=== PATIENT | male | born 1985 | race Caucasian/White ===

== ENCOUNTER → 2019-03-06 | Outpatient (CLI) | payer BC ==
--- NOTE | 2019-03-06 16:25 | CONS ---
CONSULTATION DATE OF SERVICE: 03/06/2019 This patient is a 33-year-old gentleman who has [facility] for loud snoring and possible episodes of stopped breathing during sleep. 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 and gets up around 8 a.m. On days off, he sleeps from 10 p.m. until 8 a.m. According to his , he has loud snoring, sometimes episodes of stopped breathing during sleep. The patient has difficulties to breathe through the nose; he breathes through his open mouth. He wakes up with a dry mouth. In the morning the patient may wake up tired. He usually does not take any naps. [place] Sleepiness Scale is 2. PAST MEDICAL HISTORY: Allergies, sinusitis. MEDICATIONS: Claritin-D. PAST SURGICAL HISTORY: None. SOCIAL HISTORY: Positive for smoking in the past; quit 10 years ago. Alcohol consumption occasional. FAMILY HISTORY: Negative. REVIEW OF SYSTEMS: Loud snoring, awakenings from sleep in the morning with discomfort in the throat and dry mouth. Sometimes tiredness in the morning. PHYSICAL EXAMINATION: GENERAL: A pleasant gentleman without distress. VITAL SIGNS: BP 120/84, HR 100, RR 18, height 5 feet 10-3/4 inches, weight 206.4 pounds, body mass index 28.9, temperature 98.7, oxygen saturation at room air 99%. HEENT: PERRLA, EOMI. Evaluation of oropharynx showed tongue protrudes midline. Low position of soft palate. Mallampati II. Restriction of nasal breathing bilaterally. NECK: Supple. No JVD. Thyroid is not palpable. Wide neck; 16 inches in circumference. LUNGS: Clear to percussion and to auscultation. Good air exchange. No wheezing or rhonchi. HEART: S1, S2 regular. No murmurs, gallops or rubs. ABDOMEN: Soft. No tenderness. EXTREMITIES: No clubbing or cyanosis. CANE FEEDER: Awake, alert, and oriented X3. Cranial nerves 2 to 7 intact. There is no fasciculation or atrophy. noted. No focal deficits observed. IMPRESSION: 1. Loud snoring, witnessed episodes of stopped breathing during sleep, restriction of nasal breathing, wide neck; obstructive sleep apnea-hypopnea syndrome. 2. Overweight; body mass index 28.9. 3. Allergies. 4. History of sinusitis. PLAN: 1. Home sleep apnea test for evaluation of patient's breathing during sleep. 2. CPAP/BiPAP titration if sleep study confirms obstructive sleep apnea-hypopnea syndrome. 3. Preferable position during sleep on the side. 4. No driving if patient feels any sleepiness. 5. I will see patient for follow-up visit to explain results of testing and following plan. Sincerely, Vasu Mayberry MD, PhD, FAASM Diplomat of [employer] Face Worker of [facility] [place] MMODL / IJN: [id number] /
== END | disposition home or self-care (01) ==
LOC: SLEEP 09:53
PROVIDERS: ATTEND Internal Medicine
DX: G47.33 Obstructive sleep apnea (adult) (pediatric) (principal); E66.3 Overweight; T78.40XA Allergy, unspecified, initial encounter; Z68.28 Body mass index [BMI] 28.0-28.9, adult; Z87.891 Personal history of nicotine dependence; Z87.09 Personal history of other diseases of the respiratory system; Z79.899 Other long term (current) drug therapy
CPT/HCPCS: 99211

== ENCOUNTER → 2019-06-19 | Outpatient (CLI) | payer BC ==
--- NOTE | 2019-06-19 22:19 | PN ---
PROGRESS NOTE DATE OF SERVICE: 06/19/2019 33-year-old gentleman has been followed in [facility] Center for treatment of obstructive sleep apnea-hypopnea syndrome. Recently patient had home sleep apnea test which showed apnea-hypopnea index 16.7 with oxygen desaturation to 80%. Subsequently, the patient was started on treatment with CPAP in automatic regimen. Today is his first visit after he was started on treatment with CPAP. The patient sleeps better with the CPAP. Does not snore. Able to use it every night. [place] Sleepiness Scale today is 0. I checked patient's CPAP unit. Usage is 30/30 nights and 23 out of 30 nights for more than 4 hours with average usage is 6.2 hours per night. Leak is 13 L/minute, which is acceptable. Apnea-hypopnea index only 0.6, which is absolutely normal. The patient is using Brevida nasal pillow mask. MEDICATIONS: Claritin-D. PHYSICAL EXAM: Patient in no distress. BP 115/81, HR 108, RR 16, weight 210.8, temperature 98.9, oxygen saturation at room air 95%. Oropharynx Mallampati 2-3, wide pillars. NECK: Supple, no JVD. Thyroid is not palpable. LUNGS: Clear to percussion and to auscultation. Good air exchange. No wheezing or rhonchi. HEART: S1, S2 regular. No murmurs, gallops, or rubs. ABDOMEN: Soft and nontender. Bowel sounds are present. No organomegaly appreciated. EXTREMITIES: No clubbing or cyanosis. CLINICAL NUTRITIONIST: Awake, alert, and oriented X3. Cranial nerves 2 to 7 intact. There is no fasciculation or atrophy. noted. No focal deficits observed. IMPRESSION: 1. Moderate obstructive sleep apnea-hypopnea syndrome. The patient demonstrated great compliance with treatment benefitting from treatment. 2. Overweight. 3. Allergies. 4. History of sinusitis. PLAN: 1. Patient will continue to use CPAP equipment every night for the whole night. 2. Watching and losing weight. 3. Sleep hygiene with regular time in bed for at least 7-1/2 to 8 hours. 4. No driving if feeling sleepiness. 5. I will maintain all necessary prescriptions for CPAP supplies including mask, tube, filters. 6. Follow-up visit in 1 year or earlier if patient has any problems. Vasu Mayberry MD, PhD, FAASM Diplomat of [employer] Systems Analyst of [facility] [place] MMMIGUELL / JENNIFER: [id number] /
== END | disposition home or self-care (01) ==
LOC: SLEEP 16:35
PROVIDERS: ATTEND Internal Medicine
DX: G47.33 Obstructive sleep apnea (adult) (pediatric) (principal); E66.3 Overweight; T78.40XA Allergy, unspecified, initial encounter; Z87.39 Personal history of other diseases of the musculoskeletal system and connective tissue; Z99.89 Dependence on other enabling machines and devices; Z79.899 Other long term (current) drug therapy